=== PATIENT | female | born 2005 | race Two or more races ===

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

== ENCOUNTER 2025-01-04 22:49 | Emergency (ER) | payer MEDICAID ==
[~2025-01-04] VITALS: Ht 170.2 cm; Wt 61.8 kg
[2025-01-04 22:49] VITALS: BP 99/71; PULSE 107; RESP 18; TEMP 98.2; O2SAT 95
[~2025-01-04 22:49] MED LIST: ALBU108A5 IN; BENZ100C97 PO
[2025-01-06] MEDS ORDERED: ZOFR4T PO (19:20)
[2025-01-06] MEDS ORDERED: ACET500T58 PO (19:20)
== END 2025-01-05 01:18 | disposition left against medical advice (07) ==
LOC: ER 22:49
DX: T14.90XA Injury, unspecified, initial encounter (principal); Z53.21 Procedure and treatment not carried out due to patient leaving prior to being seen by health care provider; V89.2XXA Person injured in unspecified motor-vehicle accident, traffic, initial encounter; Y93.89 Activity, other specified; Y92.488 Other paved roadways as the place of occurrence of the external cause; Y99.8 Other external cause status

== ENCOUNTER 2025-01-06 17:42 | Emergency (ER) | payer MEDICAID ==
[~2025-01-06] VITALS: Ht 170.2 cm; Wt 61.6 kg
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
[2025-01-06] MEDS ORDERED: ZOFR4T PO (19:20)
[2025-01-06] MEDS ORDERED: ACET500T58 PO (19:20)
--- NOTE | 2025-01-06 20:09 | DVH ---
EXAM: CT CERVICAL WITHOUT CONTRAST INDICATION: neck pain EXAM DATE: 01/06/2025 07:27 PM COMPARISON: None TECHNIQUE: Multiple axial CT images of the cervical spine were obtained using bone algorithm. Axial a nd coronal reformatting was done. Bone and soft tissue windows were reviewed. Radiation Dose Information: CT Dose: CTDI volume is 16 mGy. Dose-length product is 1383 mGy*cm FINDINGS: The cervical alignment is intact. No acute cervical spine fracture is identified. The vertebral body heights are intact. No suspicious osseous lesions are identified. There is no prevertebral soft tissue swelling. IMPRESSION: 1. No evidence of acute cervical spine fracture or traumatic malalignment. All CT scans at this medical facility are performed using dose modulation techniques as appropriate t o a performed exam including the following: Automated exposure control was utilized; adjustment of th e MA and/or KV according to patient size; and use of iterative reconstruction technique.
--- NOTE | 2025-01-06 20:09 | DVH ---
CLINICAL HISTORY: headache TECHNIQUE: Helical imaging carried out from skull base to vertex without intravenous contrast. This e xam was performed according to our departmental dose optimization program. Up-to-date CT equipment an d radiation dose reduction techniques are utilized as appropriate. CTDIVol: 16.14 mGy DLP: 1383.26 mGy-cm WID: COMPARISON: None FINDINGS: The ventricles and subarachnoid spaces are normal in size and configuration. There is no midline yomaira ft or mass effect. The johnston white matter interfaces are maintained. The basal cisterns are patent. Th ere is no evidence of acute intracranial hemorrhage or extra-axial fluid collection. The mastoid air cells and visualized paranasal sinuses are well-aerated. IMPRESSION: No acute intracranial abnormality.
[2025-01-06] MEDS: ONDANSETRON ODT 4 MG TAB PO ONE (21:01)
[2025-01-06] MEDS: ACETAMINOPHEN 325 MG TAB PO ONE (21:10)
[2025-01-06 21:11] VITALS: BP 112/63; PULSE 67; RESP 17; TEMP 98.1; O2SAT 98
== END 2025-01-06 21:10 | disposition home or self-care (01) ==
LOC: ER 17:42
DX: S16.1XXA Strain of muscle, fascia and tendon at neck level, initial encounter (principal); R51.9 Headache, unspecified; V89.2XXA Person injured in unspecified motor-vehicle accident, traffic, initial encounter; Y93.89 Activity, other specified; Y92.410 Unspecified street and highway as the place of occurrence of the external cause; Y99.8 Other external cause status
CPT/HCPCS: 70450; 72125; 99284; Q0162